=== PATIENT | male | born 1970 | race Caucasian/White ===

== ENCOUNTER 2020-01-29 22:24 | Emergency (ER) | payer MEDICAID ==
[~2020-01-29] VITALS: Ht 172.7 cm; Wt 54.0 kg
[~2020-01-29 22:24] MED LIST: METF100P3 MC
[2020-01-29 22:48] VITALS: BP 125/81
[2020-01-29] MEDS ORDERED: ACETAMINOPHEN 325MG TABLET PO STA (23:21)
== END 2020-01-30 00:51 | disposition home or self-care (01) ==
LOC: ER 22:24
DX: S20.212A Contusion of left front wall of thorax, initial encounter (principal); W18.39XA Other fall on same level, initial encounter; Y93.89 Activity, other specified; Y92.89 Other specified places as the place of occurrence of the external cause; Y99.8 Other external cause status; J45.909 Unspecified asthma, uncomplicated; E11.9 Type 2 diabetes mellitus without complications
CPT/HCPCS: 71045; 99283

== ENCOUNTER 2020-01-30 06:20 | Emergency (ER) | payer MEDICAID ==
[~2020-01-30] VITALS: Ht 170.2 cm; Wt 77.0 kg
[2020-01-30] MEDS ORDERED: BACITRACIN ZINC OINT UDPKT TOP ONE (07:00)
[2020-01-30] MEDS ORDERED: IBUPROFEN 600MG TABLET PO ONE (07:00)
[2020-01-30 07:10] VITALS: BP 115/84
== END 2020-01-30 07:13 | disposition home or self-care (01) ==
LOC: ER 06:20
DX: S60.512A Abrasion of left hand, initial encounter (principal); S60.511A Abrasion of right hand, initial encounter; S80.212A Abrasion, left knee, initial encounter; S80.211A Abrasion, right knee, initial encounter; J45.909 Unspecified asthma, uncomplicated; E11.9 Type 2 diabetes mellitus without complications; W18.30XA Fall on same level, unspecified, initial encounter; Y93.89 Activity, other specified; Y92.89 Other specified places as the place of occurrence of the external cause; Y99.8 Other external cause status
CPT/HCPCS: 99283

== ENCOUNTER 2020-02-25 19:15 | Emergency (ER) | payer MEDICAID ==
[~2020-02-25] VITALS: Ht 180.3 cm; Wt 73.0 kg
[2020-02-25] MEDS ORDERED: HYDROCODONE/ACETAMINOPHEN 5/325MG TABLET PO ONE (21:00)
[2020-02-25 21:35] LABS: BASOPHILS % 0.8 % (0.0-2.0); EOSINOPHILS % 7.6 % (0.0-5.0); HEMATOCRIT. 33.4 % (42.0-52.0); HEMOGLOBIN. 11.7 g/dL (14.0-18.0); LYMPHOCYTES % 37.5 % (20.0-50.0); MEAN CORPUSCULAR HEMOGLOBIN 33.7 pg (28.0-32.0); MEAN CORPUSCULAR VOLUME 96.7 fL (80.0-94.0); MEAN PLATELET VOLUME 7.1 fl (7.4-10.4); MONOCYTES % 5.6 % (2.0-8.0); NEUTROPHILS % 48.5 % (40.0-76.0); PLATELET 242 x1000/uL (130-400); RED BLOOD CELL COUNT 3.46 mill/uL (4.7-6.1); RED CELL DISTRIBUTION WIDTH 13.4 % (11.6-14.6)
[2020-02-25 21:39] LABS: CHLORIDE 107 mEq/L (98-107)
[2020-02-25 22:26] VITALS: BP 124/80
== END 2020-02-25 22:28 | disposition home or self-care (01) ==
LOC: ER 19:18
DX: S29.8XXA Other specified injuries of thorax, initial encounter (principal); W01.0XXA Fall on same level from slipping, tripping and stumbling without subsequent striking against object, initial encounter; Y93.89 Activity, other specified; Y92.89 Other specified places as the place of occurrence of the external cause; Y99.8 Other external cause status; J45.909 Unspecified asthma, uncomplicated; F12.10 Cannabis abuse, uncomplicated; F31.9 Bipolar disorder, unspecified
CPT/HCPCS: 36415; 71045; 80053; 84484; 85025; 93005; 99285

== ENCOUNTER 2020-02-27 09:13 | Emergency (ER) | payer MEDICAID ==
[~2020-02-27] VITALS: Ht 170.2 cm; Wt 91.0 kg
[2020-02-27] MEDS ORDERED: ACETAMINOPHEN 325MG TABLET PO STA (11:45)
[2020-02-27 12:08] LABS: BASOPHILS % 0.1 % (0.0-2.0); EOSINOPHILS % 1.2 % (0.0-5.0); HEMATOCRIT. 36.9 % (42.0-52.0); HEMOGLOBIN. 12.9 g/dL (14.0-18.0); LYMPHOCYTES % 33.8 % (20.0-50.0); MEAN CORPUSCULAR HEMOGLOBIN 33.2 pg (28.0-32.0); MEAN CORPUSCULAR VOLUME 95.1 fL (80.0-94.0); MEAN PLATELET VOLUME 7.2 fl (7.4-10.4); MONOCYTES % 7.4 % (2.0-8.0); NEUTROPHILS % 57.5 % (40.0-76.0); PLATELET 249 x1000/uL (130-400); RED BLOOD CELL COUNT 3.88 mill/uL (4.7-6.1); RED CELL DISTRIBUTION WIDTH 13.5 % (11.6-14.6)
[2020-02-27 12:14] LABS: CHLORIDE 106 mEq/L (98-107)
[2020-02-27 12:18] LABS: ETHANOL BLOOD < 10 mg/dL
[2020-02-27 15:03] LABS: CLARITY URINE CLEAR (CLEAR); COLOR URINE YELLOW (YELLOW); KETONES URINE 1+ (NEGATIVE); LEUKOCYTE ESTERASE URINE 1+ (NEGATIVE); NITRITE URINE NEGATIVE (NEGATIVE); OCCULT BLOOD URINE NEGATIVE (NEGATIVE); PROTEIN URINE NEGATIVE (NEGATIVE); SPECIFIC GRAVITY URINE 1.023 (1.005-1.030)
[2020-02-27 15:17] LABS: *AMPHETAMINES SCREEN URINE PRESUMTIVE POSITIVE (NEGATIVE); *BARBITURATES SCREEN URINE NEGATIVE (NEGATIVE); *BENZODIAZEPINES SCREEN URINE NEGATIVE (NEGATIVE); *COCAINE SCREEN URINE NEGATIVE (NEGATIVE); METHADONE URINE SCREEN NEGATIVE (NEGATIVE); OPIATES URINE SCREEN NEGATIVE (NEGATIVE)
[2020-02-27 15:18] LABS: CANNABINOID URINE SCREEN PRESUMTIVE POSITIVE (NEGATIVE); PHENCYCLIDINE URINE SCREEN NEGATIVE (NEGATIVE)
[2020-02-27] MEDS ORDERED: QUETIAPINE FUMARATE 25MG TABLET PO SCH (23:15)
[2020-02-28 07:30] VITALS: BP 107/66
[2020-02-28] MEDS ORDERED: ACETAMINOPHEN 325MG TABLET PO ONE (08:45)
== END 2020-02-28 09:00 | disposition home or self-care (01) ==
LOC: ER 09:13
DX: F22 Delusional disorders (principal); S69.81XA Other specified injuries of right wrist, hand and finger(s), initial encounter; F32.9 Major depressive disorder, single episode, unspecified; R45.851 Suicidal ideations; J45.909 Unspecified asthma, uncomplicated; F12.10 Cannabis abuse, uncomplicated; F15.10 Other stimulant abuse, uncomplicated; Z75.1 Person awaiting admission to adequate facility elsewhere; W01.0XXA Fall on same level from slipping, tripping and stumbling without subsequent striking against object, initial encounter; Y93.89 Activity, other specified; Y92.89 Other specified places as the place of occurrence of the external cause
CPT/HCPCS: 36415; 73130; 80053; 80305; 80307; 80320; 80329; 81003; 85025; 93005; 99285; G0480

== ENCOUNTER 2021-09-19 15:54 | Emergency (ER) | payer MEDICAID ==
[~2021-09-19] VITALS: Ht 170.2 cm; Wt 70.0 kg
[~2021-09-19 15:54] MED LIST changes: +IBUP-2029 PO; +SERT50TA MT
[2021-09-19] MEDS ORDERED: SODIUM CHLORIDE 0.9% 1,000 ML IV ONE (17:15)
[2021-09-20 00:52] VITALS: BP 117/63
== END 2021-09-20 02:27 | disposition home or self-care (01) ==
LOC: ER 15:54
DX: M79.641 Pain in right hand (principal); M79.661 Pain in right lower leg; R55 Syncope and collapse; E11.9 Type 2 diabetes mellitus without complications; I10 Essential (primary) hypertension; J45.909 Unspecified asthma, uncomplicated; F15.10 Other stimulant abuse, uncomplicated; F12.10 Cannabis abuse, uncomplicated; Z79.84 Long term (current) use of oral hypoglycemic drugs; W01.10XA Fall on same level from slipping, tripping and stumbling with subsequent striking against unspecified object, initial encounter; Y93.89 Activity, other specified; Y92.488 Other paved roadways as the place of occurrence of the external cause
CPT/HCPCS: 70450; 70486; 73562; 73630; 93005; 96360; 99285; J7030

== ENCOUNTER 2024-02-02 09:48 | Emergency (ER) | payer MEDICAID ==
[~2024-02-02] VITALS: Ht 170.2 cm; Wt 98.0 kg
[2024-02-02 09:50] VITALS: O2SAT 99
[2024-02-02] MEDS: LORAZEPAM 1MG TABLET PO ONE (10:35)
[2024-02-02 11:00] LABS: BASOPHILS % 0.4 % (0.0-2.0); EOSINOPHILS % 2.3 % (0.0-5.0); HEMATOCRIT. 34.8 % (42.0-52.0); HEMOGLOBIN. 11.5 g/dL (14.0-18.0); MEAN CORPUSCULAR HGB CONC 33.2 g/dL (31.0-37.0); MEAN CORPUSCULAR VOLUME 96.4 fL (80.0-94.0); MEAN PLATELET VOLUME 7.2 fl (7.4-10.4); MONOCYTES % 7.2 % (2.0-8.0); NEUTROPHILS % 67.1 % (40.0-76.0); PLATELET 358 x1000/uL (130-400); RED BLOOD CELL COUNT 3.61 mill/uL (4.7-6.1); RED CELL DISTRIBUTION WIDTH 13.8 % (11.6-14.6); WHITE BLOOD COUNT 11.5 x1000/uL (4.5-11.0)
[2024-02-02 11:05] LABS: INR 0.9; PROTHROMBIN TIME 10.5 sec (9.6-11.0)
[2024-02-02 11:20] LABS: CHLORIDE 99 mEq/L (98-107); POTASSIUM 4.7 mEq/L (3.5-5.1); SODIUM 131 mEq/L (136-145)
[2024-02-02 11:21] LABS: CARBON DIOXIDE 21 mEq/L (21-32)
[2024-02-02 11:22] LABS: CALCIUM 9.6 mg/dL (8.7-10.4)
[2024-02-02 11:26] LABS: CREATININE 1.6 mg/dL (0.6-1.3); GLUCOSE 80 mg/dL (70-105)
[2024-02-02 11:27] LABS: UREA NITROGEN BLOOD 45 mg/dL (9-23)
[2024-02-02 11:28] LABS: ALANINE AMINOTRANSFERASE 28 IU/L (10-49); ALBUMIN 4.4 g/dL (3.2-4.8); ASPARTATE AMINOTRANSFERASE 76 IU/L (<34)
[2024-02-02 11:29] LABS: BILIRUBIN TOTAL 0.6 mg/dL (0.1-1.0); PROTEIN TOTAL 7.2 g/dL (6.0-8.3)
[2024-02-02 11:41] LABS: ETHANOL BLOOD < 10 mg/dL (<10)
[2024-02-02] MEDS ORDERED: DICY20TA2 MT (12:10)
[2024-02-02 13:00] VITALS: BP 135/92; PULSE 89; RESP 16; TEMP 98.4
== END 2024-02-02 13:11 | disposition home or self-care (01) ==
LOC: ER 09:48
DX: F15.10 Other stimulant abuse, uncomplicated (principal); R10.9 Unspecified abdominal pain; F12.10 Cannabis abuse, uncomplicated; E11.9 Type 2 diabetes mellitus without complications; I10 Essential (primary) hypertension
CPT/HCPCS: 36415; 80053; 80320; 83605; 85025; 99283; G0480

== ENCOUNTER 2024-02-02 14:51 | Emergency (ER) | payer MEDICAID ==
[~2024-02-02] VITALS: Ht 172.7 cm; Wt 84.0 kg
[~2024-02-02 14:51] MED LIST changes: +DICY20TA2 MT
[2024-02-02 15:04] VITALS: BP 109/54; PULSE 95; RESP 18; TEMP 100.4; O2SAT 98
[2024-02-02] MEDS: ACETAMINOPHEN 500MG TABLET PO ONE (16:02)
[2024-02-02] MEDS: SODIUM CHLORIDE 0.9% 1,000 ML IV ONE ×2 (16:02→18:20)
[2024-02-02] MEDS: SODIUM CHLORIDE 0.9% 500 ML IV ONE ×2 (16:02→18:20)
[2024-02-02 16:21] LABS: BASOPHILS % 0.7 % (0.0-2.0); EOSINOPHILS % 3.3 % (0.0-5.0); HEMATOCRIT. 33.2 % (42.0-52.0); HEMOGLOBIN. 11.3 g/dL (14.0-18.0); MEAN CORPUSCULAR HEMOGLOBIN 32.5 pg (28.0-32.0); MEAN CORPUSCULAR HGB CONC 34.2 g/dL (31.0-37.0); MEAN CORPUSCULAR VOLUME 95.2 fL (80.0-94.0); MEAN PLATELET VOLUME 6.8 fl (7.4-10.4); MONOCYTES % 8.1 % (2.0-8.0); NEUTROPHILS % 54.9 % (40.0-76.0); PLATELET 339 x1000/uL (130-400); RED BLOOD CELL COUNT 3.48 mill/uL (4.7-6.1); RED CELL DISTRIBUTION WIDTH 13.8 % (11.6-14.6); WHITE BLOOD COUNT 11.8 x1000/uL (4.5-11.0)
[2024-02-02 16:29] LABS: CHLORIDE 101 mEq/L (98-107); POTASSIUM 4.6 mEq/L (3.5-5.1); SODIUM 132 mEq/L (136-145)
[2024-02-02 16:30] LABS: CALCIUM 9.7 mg/dL (8.7-10.4); CARBON DIOXIDE 19 mEq/L (21-32)
[2024-02-02 16:35] LABS: CREATININE 1.7 mg/dL (0.6-1.3); GLUCOSE 70 mg/dL (70-105); UREA NITROGEN BLOOD 47 mg/dL (9-23)
[2024-02-02 16:36] LABS: ETHANOL BLOOD < 10 mg/dL (<10)
[2024-02-02] MEDS: CEFTRIAXONE 1GM/50ML 50 ML IV NR (18:32)
== END 2024-02-02 20:40 | disposition home or self-care (01) ==
LOC: ER 15:08
DX: E86.0 Dehydration (principal); F29 Unspecified psychosis not due to a substance or known physiological condition; F12.10 Cannabis abuse, uncomplicated; F15.10 Other stimulant abuse, uncomplicated; N28.9 Disorder of kidney and ureter, unspecified; F10.10 Alcohol abuse, uncomplicated; Y90.0 Blood alcohol level of less than 20 mg/100 ml
CPT/HCPCS: 80048; 80320; 83605; 85025; 87040; 36415; 71045; 96361; 96365; 99284; J0696; J7040; J7030; G0480

== ENCOUNTER 2024-02-02 20:51 | Emergency (ER) | payer MEDICAID ==
[~2024-02-02] VITALS: Ht 170.2 cm; Wt 81.4 kg
[2024-02-02 20:59] VITALS: O2SAT 99
[2024-02-03 00:01] LABS: BASOPHILS % 0.6 % (0.0-2.0); EOSINOPHILS % 3.5 % (0.0-5.0); HEMATOCRIT. 34.5 % (42.0-52.0); HEMOGLOBIN. 11.6 g/dL (14.0-18.0); LYMPHOCYTES % 30.9 % (20.0-50.0); MEAN CORPUSCULAR HEMOGLOBIN 32.3 pg (28.0-32.0); MEAN CORPUSCULAR HGB CONC 33.8 g/dL (31.0-37.0); MEAN CORPUSCULAR VOLUME 95.6 fL (80.0-94.0); MEAN PLATELET VOLUME 6.5 fl (7.4-10.4); MONOCYTES % 6.7 % (2.0-8.0); NEUTROPHILS % 58.3 % (40.0-76.0); PLATELET 348 x1000/uL (130-400); RED CELL DISTRIBUTION WIDTH 13.4 % (11.6-14.6); WHITE BLOOD COUNT 11.6 x1000/uL (4.5-11.0)
[2024-02-03 00:07] LABS: CHLORIDE 105 mEq/L (98-107); POTASSIUM 4.2 mEq/L (3.5-5.1); SODIUM 135 mEq/L (136-145)
[2024-02-03 00:08] LABS: CALCIUM 8.9 mg/dL (8.7-10.4); CARBON DIOXIDE 22 mEq/L (21-32)
[2024-02-03 00:13] LABS: CREATININE 1.3 mg/dL (0.6-1.3); GLUCOSE 81 mg/dL (70-105); UREA NITROGEN BLOOD 43 mg/dL (9-23)
[2024-02-03 00:15] LABS: ACETAMINOPHEN 2 ug/mL (10-30)
[2024-02-03 00:22] LABS: ETHANOL BLOOD < 10 mg/dL (<10)
[2024-02-03 12:35] LABS: *AMPHETAMINES SCREEN URINE PRESUMPTIVE POSITIVE (NEGATIVE); *BARBITURATES SCREEN URINE NEGATIVE (NEGATIVE); *BENZODIAZEPINES SCREEN URINE NEGATIVE (NEGATIVE); *COCAINE SCREEN URINE NEGATIVE (NEGATIVE); CANNABINOID URINE SCREEN PRESUMPTIVE POSITIVE (NEGATIVE); ECSTASY MDMA SCREEN URINE NEGATIVE (NEGATIVE); METHADONE URINE SCREEN NEGATIVE (NEGATIVE); OPIATES URINE SCREEN NEGATIVE (NEGATIVE); PHENCYCLIDINE URINE SCREEN NEGATIVE (NEGATIVE)
[2024-02-03 13:29] LABS: CLARITY URINE CLEAR (CLEAR); COLOR URINE YELLOW (YELLOW); GLUCOSE URINE NEGATIVE (NEGATIVE); KETONES URINE 2+ (NEGATIVE); LEUKOCYTE ESTERASE URINE NEGATIVE (NEGATIVE); NITRITE URINE NEGATIVE (NEGATIVE); OCCULT BLOOD URINE NEGATIVE (NEGATIVE); PH URINE 5.5 (4.5-8.0); PROTEIN URINE NEGATIVE (NEGATIVE); SPECIFIC GRAVITY URINE 1.018 (1.005-1.030); UROBILINOGEN URINE 0.2 E.U./dL (0.2-1.0)
[2024-02-03] MEDS: OLANZAPINE 5MG TABLET ODT PO SCH (21:00)
[2024-02-04 03:00] VITALS: BP 119/78; PULSE 55; RESP 20; TEMP 98.3
== END 2024-02-04 03:45 ==
LOC: ER 20:51
DX: R45.850 Homicidal ideations (principal); F12.10 Cannabis abuse, uncomplicated; F15.10 Other stimulant abuse, uncomplicated; Z20.822 Contact with and (suspected) exposure to COVID-19
CPT/HCPCS: 36415; 80048; 80305; 80307; 80320; 80329; 81001; 82962; 85025; 87426; 99285; G0480